=== PATIENT | male | born 1960 | race Caucasian/White ===

== ENCOUNTER → 2017-08-21 | Outpatient (CLI) | payer BC ==
[2017-08-21 13:25] LABS: CALCIUM PYROPHOSPHATE CRYSTALS INTRACELLULAR; MONOSODIUM URATE CRYSTALS NONE OBSERVED; OTHER CRYSTALS NONE OBSERVED
[2017-08-21 14:06] LABS: FLUID APPEARANCE CLOUDY; FLUID COLOR DARK YELLOW; FLUID SOURCE KNEE; FLUID TYPE SYNOVIAL; FLUID VISCOSITY MODERATELY VISCOUS
== END ==
LOC: OD 10:09
PROVIDERS: ATTEND Orthopaedic Surgery
DX: A69.20 Lyme disease, unspecified (principal)
CPT/HCPCS: 36415; 87070; 87075; 87205; 89050; 89060

== ENCOUNTER 2017-10-05 09:12 | Emergency (ER) | payer BC ==
--- NOTE | 2017-10-05 10:22 | ER Document Report ---
ED General - General Mode of Arrival: Ambulatory Information source: Patient TRAVEL OUTSIDE OF THE [place] IN LAST 30 DAYS: No - General Chief Complaint: Facial Droop Stated Complaint: FACIAL NUMBNESS Time Seen by Provider: 10/05/17 10:09 Notes: 56-year-old male presenting to the emergency department today with complaints of right-sided facial weakness that began this morning upon awakening at about 0530. Patient states he was drinking water this morning and he noticed that a small portion "dribbled" out of his mouth but he did not think anything of it at the time. He states when driving to work he looked in the mirror and noticed the right side of his mouth and face seemed to be drooping. Patient has no focal neurological deficits other than the right side of his face. (LISANDRO QUEEN) Past Medical History - General Information source: Patient - Social History Smoking Status: Former Smoker Cigarette use (# per day): No Frequency of alcohol use: None Drug Abuse: None Lives with: Family Family History: Reviewed & Not Pertinent - Past Medical History Cardiac Medical History: Reports: Hx Hypertension Renal/ Medical History: Reports: Hx Benign Prostatic Hyperplasia Musculoskeletal Medical History: Reports Hx Gout - History of pseudogout Surgical Hx: Negative Review of Systems - Review of Systems Constitutional: No symptoms reported EENT: No symptoms reported Cardiovascular: No symptoms reported Respiratory: No symptoms reported Gastrointestinal: No symptoms reported Genitourinary: No symptoms reported Male Genitourinary: No symptoms reported Musculoskeletal: No symptoms reported Skin: No symptoms reported Hematologic/Lymphatic: No symptoms reported Neurological/Psychological: See HPI, Other - right sided facial droop, right sided facial weakness -: Yes All other systems reviewed and negative Physical Exam - Notes Notes: Physical Exam: General: Alert, appears well. HEENT: Normocephalic. Atraumatic. PERRL. Extraocular movements intact. Oropharynx clear. Right sided facial droop, inability to completely shut right eye, markedly diminished ability to wrinkle right forehead. Neck: Supple. Non-tender. Respiratory: No respiratory distress. Clear and equal breath sounds bilaterally. Cardiovascular: Regular rate and rhythm. Abdominal: Normal Inspection. Non-tender. No distension. Normal Bowel Sounds. Back: Non-tender. No deformity or step off. Extremities: Moves all four extremities. Upper extremities: Normal inspection. Normal ROM. Lower extremities: Normal inspection. No edema. Normal ROM. Neurological: Normal cognition. AAOx4. Normal speech. Right sided facial droop , inability to completely shut right eye, markedly diminished ability to wrinkle right forehead. Psychological: Normal affect. Normal Mood. Skin: Warm. Dry. Normal color. (LISANDRO QUEEN) Discharge - Discharge Clinical Impression: Okeefe's palsy Additional Instructions: [place]' Palsy You have been diagnosed as having Okeefe's Palsy -- a paralysis of certain muscles of the face. It's caused by a temporary paralysis of the nerve which controls the muscles. The cause is unknown, but it's thought to be caused by a virus in most cases. The physician's exam shows that this is NOT a stroke. [place]fe's Palsy usually gets better by itself. There is no cure. Sometimes cortisone-type medication is given to decrease nerve swelling. This problem is usually temporary, lasting about three weeks. During that time, you must protect the eye from injury (because the eyelid muscles often do not cover it). Ointment or a patch may be necessary. Be sure to follow up as instructed, and call the doctor at once if new symptoms arise. Report any eye pain, decreasing vision or double vision, or any numbness or weakness outside the face area. Take the medications as prescribed. Use eye wetting solutions and ointments such as Lacri-Lube to keep the cornea moistened. Tape the eyelids closed when sleeping. Avoid wind and sunlight. Using the lubricating ointment and an eye patch during the day may be helpful. Follow-up with your doctor next week for reevaluation and consideration of testing for Lyme disease. RETURN TO THE EMERGENCY ROOM IF ANY NEW OR WORSENING SYMPTOMS. Prescriptions: Prednisone [Deltasone 10 mg Tablet] 10 mg PO ASDIR PRN #50 tablet PRN Reason: Valacyclovir HCl [Valacyclovir] 500 mg PO BID #10 tablet Scribe Attestation: 10/05/17 10:27 I personally performed the services described in the documentation, reviewed and edited the documentation which was dictated to the scribe in my presence, and it accurately records my words and actions. (EMILY LEWIS) Scribe Documentation - Scribe Written by Aleah:: Aleah Veliz, 10/05/2017 1150 acting as scribe for :: Anna
[2017-10-05 10:39] VITALS: BP 140/92
--- NOTE | 2017-10-05 21:46 | EKG REPORT ---
SEVERITY:- NORMAL ECG - SINUS RHYTHM : Confirmed by: Ciera Pimentel MD 05-Oct-2017 21:46:00
== END 2017-10-05 10:46 | disposition home or self-care (01) ==
LOC: ER 09:12
DX: G51.0 Bell's palsy (principal); I10 Essential (primary) hypertension; Z87.891 Personal history of nicotine dependence
CPT/HCPCS: 93005; 93010; 99284